=== PATIENT | male | born 1945 | race Caucasian/White ===

== ENCOUNTER 2016-10-08 14:05 | Emergency (ER) ==
[2016-10-08 14:11] VITALS: BP 152/95; TEMP 97.7; BMI 27.8
--- NOTE | 2016-10-08 14:22 | ED.PDOC ---
General ED Provider: Dr. LUIS EDUARDO PARSONS JR Chief Complaint: Rash Stated Complaint: welts walk in clinic benadryl, steroid shot and a steriod pack rash better. today rash returned to Dr. Haider rash gone gave him a steroid shot 30 minutes after shot rash started to return-lips numb itching[End] 3 days 97.7 85 20 95% 152/95seemed to break out after working with his cabinets at his house; house sprayed for bugs earlier in the week.[ End ] Time Seen by Physician: 14:22 Mode of Arrival: Walk-In Information Source: Patient Exam Limitations: No limitations Primary Care Provider: ADALBERTO HAIDER Nursing and Triage Documentation Reviewed and Agree: No Review of Systems - Review Of Systems Constitutional: Reports: No symptoms Eyes: Reports: No symptoms Ears, Nose, Mouth, Throat: Reports: Mouth pain (tingling) Respiratory: Reports: No symptoms Cardiac: Reports: No symptoms GI: Reports: No symptoms : Reports: No symptoms Musculoskeletal: Reports: No symptoms Skin: Reports: Rash Neurological: Reports: No symptoms Endocrine: Reports: No symptoms Hematologic/Lymphatic: Reports: No symptoms All Other Systems: Other Past Medical History - Past Medical History Endocrine: Reports: Dyslipidemia Cardiovascular: Reports: Hypertension Respiratory: Reports: None Hematological: Reports: None Gastrointestinal: Reports: None Genitourinary: Reports: None Neuro/Psych: Reports: None Musculoskeletal: Reports: None Cancer: Reports: None - Surgical History General Surgical History: Reports: None. Denies: Back Surgery (neck surgery) - Family History Family History: Reports: Unknown - Social History Smoking Status: Former smoker Hx Substance Use: No Alcohol Screening: None Physical Exam - Physical Exam Appearance: Well-appearing Pain Distress: Moderate Eyes: ÁNGELA, EOMI, Conjunctiva clear ENT: Ears normal, Nose normal, Oropharynx normal Neck: Supple Respiratory: Airway patent, Breath sounds clear, Breath sounds equal, Respirations nonlabored Cardiovascular: RRR, Pulses normal, No rub, No murmur GI/: Soft, Nontender, No masses, Bowel sounds normal, No Organomegaly Musculoskeletal: Normal strength, ROM intact, No edema, No calf tenderness Skin: Warm, Dry, Normal color (hives kegs arms back abdomen scalp) Neurological: Sensation intact, Motor intact, Reflexes intact, Cranial nerves intact, Alert, Oriented Psychiatric: Affect appropriate, Mood appropriate Critical Care Note - Critical Care Note Total Time (mins): 0 Course - Course Orders, Labs, Meds: Orders Category Date Time Status Diphenhydramine Inj [Benadryl] MEDS 10/08/16 14:30 Discontinued 50 mg IM ONCE STA Medications Discontinued Medications Generic Name Dose Route Start Last Admin Trade Name Freq PRN Reason Stop Dose Admin Diphenhydramine HCl 50 mg 10/08/16 14:30 Benadryl IM 10/08/16 14:31 ONCE STA Vital Signs: Temp Pulse Resp BP Pulse Ox 10/08/16 14:06 97.7 F 85 20 152/95 H 95 Departure - Departure Time of Disposition: 14:31 Disposition: HOME SELF-CARE Discharge Problem: Pruritic rash Instructions: Urticaria (ED), Cold Compress or Soak (ED) Condition: Good Pt referred to PMD for follow-up: Yes Additional Instructions: Benadryl for 2 to three days then as needed write down everything you have eaten(and when) to compare if rash returns may add zantac for rash(different type of antihistamine) do not drive on Benadryl may finish out medrol pack return if any shortness of breath Prescriptions: Diphenhydramine HCl [Benadryl] 25 mg PO QID #30 capsule Ranitidine HCl [Zantac] 150 mg PO BIDAC PRN #30 tablet PRN Reason: Allergy Symptoms Allergies/Adverse Reactions: Allergies acetaminophen [From Lortab] Adverse Reaction (Verified 09/13/12 15:06) hydrocodone bitartrate [From Lortab] Adverse Reaction (Verified 10/08/16 14:11) Rash Home Medications: Ambulatory Orders Aspirin [Aspirin Chewable] 81 mg PO DAILYWM 09/13/12 Ezetimibe/Simvastatin [Vytorin 10-20 mg Tablet] 1 each PO DAILY 09/13/12 Olmesartan Medoxomil [Benicar] 40 mg PO DAILY 09/13/12 Tramadol HCl [Ultram] 50 mg PO TID PRN 09/13/12 Diphenhydramine HCl [Benadryl] 25 mg PO QID #30 capsule 10/08/16 Ranitidine HCl [Zantac] 150 mg PO BIDAC PRN #30 tablet 10/08/16
[2016-10-08] MEDS ORDERED: BENADRYL IM STA (14:30)
== END 2016-10-08 14:55 | disposition home or self-care (01) ==
LOC: ED 14:05
DX: L50.9 Urticaria, unspecified (principal)
CPT/HCPCS: 96372; 99282